=== PATIENT | female | born 1995 | race Caucasian/White ===

== ENCOUNTER 2023-12-14 18:38 | Emergency (ER) | payer SELFPAY ==
[2023-12-14 19:01] VITALS: BP 132/85; PULSE 92; RESP 17; TEMP 98.4; BMI 25.6
[2023-12-14 21:04] LABS: CHLORIDE 108 mmol/L (98-107); POTASSIUM 4.1 mmol/L (3.5-5.1); SODIUM 140 mmol/L (136-145)
[2023-12-14 21:06] LABS: ALBUMIN 4.2 g/dl (3.4-5.0); ANION GAP 9 mmol/L (4-13); BASO % 0.8 % (0-2.0); CALCIUM 9.2 mg/dL (8.5-10.1); CO2 23 mmol/L (21-32); EOS % 0.3 % (0-4.5); HEMATOCRIT 31.9 % (32.4-45.2); HEMOGLOBIN 10.1 GM/dL (10.7-15.3); LYMPH % 21.2 % (8-40); MCH 24.3 pg (25.7-33.7); MCHC 31.8 g/dl (32.0-36.0); MEAN CELL VOLUME 76.7 fl (80-96); MONO % 5.9 % (3.8-10.2); NEUT % 71.8 % (42.8-82.8); PLATELET COUNT 440 10^3/uL (134-434); RBC 4.16 M/mm3 (3.60-5.2); RDW 17.3 % (11.6-15.6); WHITE BLOOD COUNT 11.2 K/mm3 (4.0-10.0)
[2023-12-14 21:07] LABS: BLOOD UREA NITROGEN 12.2 mg/dL (7-18); GLUCOSE,RANDOM 98 mg/dL (74-106)
[2023-12-14 21:09] LABS: SGPT/ALT 20 U/L (13-61)
[2023-12-14 21:10] LABS: CREATININE 0.7 mg/dL (0.55-1.3); SGOT/AST 16 U/L (15-37)
[2023-12-14 21:11] LABS: BILIRUBIN,TOTAL 0.2 mg/dL (0.2-1); TOT PROT 7.8 g/dl (6.4-8.2)
[2023-12-14] MEDS ORDERED: IBUPROFEN 600 MG TABLET (FP) PO ONE (21:11)
[2023-12-14 21:12] LABS: ALK PHOS 81 U/L (45-117)
[2023-12-14] MEDS: IBUPROFEN 600 MG TABLET (FP) PO ONE (21:15)
== END 2023-12-14 23:29 | disposition home or self-care (01) ==
LOC: JER 18:38
DX: N93.9 Abnormal uterine and vaginal bleeding, unspecified (principal); R10.30 Lower abdominal pain, unspecified
CPT/HCPCS: 36415; 76830-TC; 80053; 84702; 85025; 99284-25